=== PATIENT | male | born 1995 | race Two or more races ===

== ENCOUNTER 2016-12-31 12:03 | Emergency (ER) | payer OTHER ==
[2016-12-31 12:09] VITALS: TEMP 98.8
--- NOTE | 2016-12-31 13:40 | EDPHY ---
H & P Time Seen by Provider: 12/31/16 12:28 HPI/ROS: CHIEF COMPLAINT: Lip laceration HISTORY OF PRESENT ILLNESS: 21-year-old male presents to the emergency department with the [facility] with lip laceration. The patient states that he was boxing and got hit in the mouth. He denies facial pain. He complains of isolated lower lip laceration. Denies headache, neck pain, back pain, chest pain or difficulty breathing. Denies abdominal pain. Denies any other injury or trauma. His last tetanus shot was just a few months ago. REVIEW OF SYSTEMS: Constitutional: No fever, no chills. Eyes: No double or blurry vision. ENT: No sore throat. Respiratory: No cough, no shortness of breath. Cardiac: No chest pain. Gastrointestinal: No abdominal pain, vomiting or diarrhea. Genitourinary: No dysuria. Musculoskeletal: No neck or back pain. Skin: Lip laceration as above. No rashes. Neurological: No headache. Past Medical/Surgical History: Negative Social History: Currently in [facility] Smoking Status: Former smoker Physical Exam: General Appearance: Alert, no distress. Eyes: Pupils equal and round. Extraocular motions are all intact. ENT: Mouth: Mucous membranes moist. No dental injury or malocclusion. No facial bone tenderness. Respiratory: No wheezing, rhonchi, or rales, lungs are clear to auscultation. Cardiovascular: Regular rate and rhythm. Gastrointestinal: Abdomen is soft and nontender, no masses, no rebound or guarding, bowel sounds normal. Neurological: Alert and oriented x 3, cranial nerves II through XII grossly intact Skin: 1 cm left lower lip laceration. Just barely crosses the vermilion border. Warm and dry, no rashes. Musculoskeletal: Nontender to palpate along the cervical, thoracic or lumbar spine. Neck is supple. Extremities: Full range of motion and no peripheral edema. Psychiatric: Patient is oriented X 3, there is no agitation. Constitutional: Initial Vital Signs Temperature (C) 37.1 C 12/31/16 12:05 Heart Rate 75 12/31/16 12:05 Respiratory Rate 16 12/31/16 12:05 Blood Pressure 141/100 H 12/31/16 12:05 O2 Sat (%) 95 12/31/16 12:05 O2 Delivery Mode Room Air Allergies/Adverse Reactions: No Known Allergies Allergy (Unverified 12/31/16 12:04) Home Medications: Medication Instructions Recorded Lexapro 12/31/16 traZODone 12/31/16 Medical Decision Making Procedures: Laceration repair. Verbal consent was obtained from the patient. The 1 cm laceration on the left lower lip was anesthetized using 1% lidocaine with epinephrine. The wound was irrigated with saline, draped and explored to its base with a gloved finger. There were no deep structures involved. The wound was repaired with 6 0 Vicryl, 5 sutures. The wound repair was simple. The procedure was performed by myself. ED Course/Re-evaluation: 21-year-old male presents with lower lip laceration. The wound was repaired, see procedure note. The patient has no facial bone tenderness. I do not think imaging studies are necessary. [facility] be [facility] back to [facility]. Differential Diagnosis: Head injury including but not limited to concussion, skull fracture, intraparenchymal contusion, subarachnoid, subdural and epidural hematoma. Departure - Departure Disposition: Home, Routine, Self-Care Clinical Impression: Laceration of lower lip Qualifiers: Encounter type: initial encounter Qualified Code(s): S01.511A - Laceration without foreign body of lip, initial encounter Condition: Good Instructions: Care For Your Stitches (ED), Laceration (ED), Acute Wounds (ED) Additional Instructions: You have absorbing sutures inner lip. If they are not completely absorbed in 1 week, you may return to the emergency department to have these removed. Ibuprofen 600 mg every 8 hours as needed for pain. Return if you notice any signs or symptoms of infection such as redness, swelling, increased pain, fever , purulent drainage. Referrals: NONE *PRIMARY CARE P,. [Primary Care Provider] - As per Instructions
[2016-12-31 13:45] VITALS: BP 136/92; PULSE 78; RESP 18; O2SAT 97
== END 2016-12-31 13:45 | disposition home or self-care (01) ==
PROC: 0CQ1XZZ Repair Lower Lip, External Approach (ICD-10-PCS; principal; 2016-12-31)
DX: S01.511A Laceration without foreign body of lip, initial encounter (principal); Z87.891 Personal history of nicotine dependence; W22.8XXA Striking against or struck by other objects, initial encounter; Y92.149 Unspecified place in prison as the place of occurrence of the external cause; Y99.8 Other external cause status; Y93.71 Activity, boxing